=== PATIENT | female | born 1990 | race Hispanic/Latino ===

== ENCOUNTER 2023-09-17 04:31 | Emergency (ER) | payer OTHER ==
[~2023-09-17] VITALS: Ht 162.6 cm; Wt 74.8 kg
[2023-09-17] MEDS: MORPHINE 4 MG SYG IVP ONE (05:11)
[2023-09-17] MEDS: KETOROLAC 15MG/ML VIAL (15MG/ML) IV ONE (07:26)
[2023-09-17 08:00] VITALS: BP 109/60; PULSE 68; RESP 17; O2SAT 99
== END 2023-09-17 09:18 | disposition home or self-care (01) ==
LOC: EDH 04:31
DX: K85.90 Acute pancreatitis without necrosis or infection, unspecified (principal); G89.18 Other acute postprocedural pain; J44.9 Chronic obstructive pulmonary disease, unspecified; Z98.890 Other specified postprocedural states
CPT/HCPCS: 99285; 96374; 73700; 96375; J2270; J1885